=== PATIENT | male | born 1960 | race American Indian/Alaskan Native ===

== ENCOUNTER 2019-03-26 03:04 | Emergency (ER) | payer SELFPAY ==
--- NOTE | 2019-03-26 04:32 | Emergency Department Report ---
Minor Respiratory - HPI Chief Complaint: Upper Respiratory Infection Stated Complaint: COUGH SOB SNEEZING BODY ACHES Time Seen by Provider: 03/26/19 04:27 Duration: 5 Days Minor Respiratory: Yes Able to Tolerate Fluids, Yes Cough, Yes Shortness of Breath (improved), No Rhinorrhea, No Sore Throat, No Ear Pain, No Chest Pain, No Fever Other History: 58-year-old -Polish male presents to the emergency room complaining of nonproductive cough with sneezing bodyaches and shortness of breath with exertion. Patient states that the shortness of breath has improved. 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 Patient reports that he took NyQuil on Monday. Patient reports a past medical history of hypertension but has not been on his medications for over 4 months. Patient does have a primary care provider. Patient denies any fever. ED Review of Systems ROS: Stated complaint: COUGH SOB SNEEZING BODY ACHES Other details as noted in HPI Comment: All other systems reviewed and negative ENT: other (sneezing, body aches) Respiratory: cough ED Past Medical Hx - Past Medical History Previous Medical History?: No - Surgical History Past Surgical History?: Yes Additional Surgical History: cheek bone - Social History Smoking Status: Current Every Day Smoker Substance Use Type: Alcohol - Medications Home Medications: Home Medications Medication Instructions Recorded Confirmed Last Taken Type Ibuprofen [Motrin 800 MG tab] 800 mg PO Q8HR PRN #28 tablet 03/26/19 Unknown Rx Loratadine [Claritin] 10 mg PO DAILY 14 Days #14 tablet 03/26/19 Unknown Rx guaiFENesin [Robitussin] 200 mg PO Q6HR PRN 7 Days #28 03/26/19 Unknown Rx tablet Minor Respiratory Exam - Exam General: Vital signs noted. No distress. Alert and acting appropriately. HEENT: Yes Moist Mucous Membranes, No Pharyngeal Erythema, No Pharyngeal Exudates, No Rhinorrhea, No Conjuctival Injection, No Frontal Tenderness, No Maxillary Tenderness Ear: Neither TM Bulge, Neither TM Erythema, Neither EAC Pain, Neither EAC Discharge Neck: Yes Supple, No Adenopathy Lungs: Yes Good Air Exchange, No Wheezes, No Ronchi, No Stridor, No Cough, No Labored Respirations, No Retractions, No Use of Accessory Muscles, No Other Abnormal Lung Sounds Heart: Yes Regular, No Murmur Abdomen: Yes Normal Bowel Sounds, No Tenderness, No Peritoneal Signs Skin: No Rash, No Edema Neurologic: Alert and oriented, no deficits. Musculoskeletal: Unremarkable. ED Course Vital Signs 03/26/19 03:13 Temperature 97.6 F Pulse Rate 91 H Respiratory 18 Rate Blood Pressure 178/107 O2 Sat by Pulse 97 Oximetry ED Medical Decision Making - Medical Decision Making 58-year-old -Polish male presents to the emergency room complaining of nonproductive cough with sneezing bodyaches and shortness of breath with exertion. Patient states that the shortness of breath has improved. 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 Patient reports that he took NyQuil on Monday. Patient reports a past medical history of hypertension but has not been on his medications for over 4 months. Patient does have a primary care provider. Patient denies any fever. Patient will be discharged home with Claritin 10 mg daily and Robitussin every 4-6 hours as needed for cough. Critical care attestation.: If time is entered above; I have spent that time in minutes in the direct care of this critically ill patient, excluding procedure time. ED Disposition Clinical Impression: Allergic rhinitis Disposition: DC-01 TO HOME OR SELFCARE Is pt being admited?: No Does the pt Need Aspirin: No Condition: Stable Instructions: Allergic Rhinitis (ED) Prescriptions: Loratadine [Claritin] 10 mg PO DAILY 14 Days #14 tablet Ibuprofen [Motrin 800 MG tab] 800 mg PO Q8HR PRN #28 tablet PRN Reason: Pain , Severe (7-10) guaiFENesin [Robitussin] 200 mg PO Q6HR PRN 7 Days #28 tablet PRN Reason: Cough Referrals: ANKIT SANCHEZ MD [Staff Physician] - 3-5 Days Forms: Work/School Release Form(ED)
[2019-03-26 07:14] VITALS: BP 146/97
== END 2019-03-26 05:39 | disposition home or self-care (01) ==
LOC: ED 03:04
DX: J30.9 Allergic rhinitis, unspecified (principal); F17.200 Nicotine dependence, unspecified, uncomplicated; Z79.899 Other long term (current) drug therapy

== ENCOUNTER 2019-06-15 19:00 | Emergency (ER) | payer BC ==
[2019-06-15 19:30] VITALS: BP 129/83
[2019-06-15] MEDS ORDERED: ACETAMINOPHEN 325 MG TAB PO ONE (19:36)
--- NOTE | 2019-06-15 19:36 | Event Note ---
ED Screening Note Date of service: 06/15/19 Time: 19:33 ED Screening Note: Pt complains of fever, bodyaches, cough, and headaches x 4 days +SOB This initial assessment/diagnostic orders/clinical plan/treatment(s) is/are subject to change based on patients health status, clinical progression and re- assessment by fellow clinical providers in the ED. Further treatment and workup at subsequent clinical providers discretion. Patient/guardian urged not to elope from the ED as their condition may be serious if not clinically assessed and managed. Initial orders include: CXR
[2019-06-15] MEDS ORDERED: ACETAMINOPHEN 325 MG TAB ONE (19:37)
--- NOTE | 2019-06-15 20:20 | XRay Report ---
CHEST 2 VIEWS INDICATION / CLINICAL INFORMATION: fever, cough, shortness of breath. COMPARISON: None available. FINDINGS: SUPPORT DEVICES: None. HEART / MEDIASTINUM: No significant abnormality. LUNGS / PLEURA: Ill-defined patchy bibasilar airspace opacities are present, greater on the left. No pleural fluid. No pneumothorax. ADDITIONAL FINDINGS: No significant additional findings. IMPRESSION: Findings are concerning for pneumonia in the lower lobes and possibly the middle lobe. Signer Name: Norberto Valdez MD Signed: 06/15/2019 8:16 PM Workstation Name: [id number]
[2019-06-15] MEDS ORDERED: levoFLOXacin 750 MG TAB PO ONE (23:16)
[2019-06-15] MEDS ORDERED: SODIUM CHLORIDE 0.9% 1000 ML 1,000 ML IV ONE (23:35)
[2019-06-15] MEDS ORDERED: IPRATROPIUM/ALBUTEROL SULFATE 3 ML AMPUL.NEB IH ONE (23:35)
[2019-06-15] MEDS ORDERED: methylPREDNISolone Sod Succinate 125 MG/2 ML INJ IV ONE (23:35)
[2019-06-15 23:53] LABS: Basophils % (Auto) 0.1 % (0.0-1.8); Hematocrit 41.2 % (35.5-45.6); Hemoglobin 13.9 gm/dl (11.8-15.2); Lymphocytes # (Auto) 0.7 K/mm3 (1.2-5.4); Lymphocytes % (Auto) 9.2 % (13.4-35.0); Mean Corpuscular HGB Conc 34 % (32-34); Mean Corpuscular Volume 93 fl (84-94); Monocytes # (Auto) 0.6 K/mm3 (0.0-0.8); Monocytes % (Auto) 8.2 % (0.0-7.3); Platelet Count 188 K/mm3 (140-440); Red Blood Count 4.43 M/mm3 (3.65-5.03)
[2019-06-16 00:20] LABS: Alanine Aminotransferase 21 units/L (7-56); Albumin 3.8 g/dL (3.9-5); BUN/Creatinine Ratio 14; Blood Urea Nitrogen 15 mg/dL (9-20); Calcium 9.5 mg/dL (8.4-10.2); Hemolysis Index 4
--- NOTE | 2019-06-16 01:05 | Emergency Department Report ---
- General Chief Complaint: Upper Respiratory Infection Stated Complaint: BAD COUGH/SOB Source: patient Mode of arrival: Ambulatory Limitations: No Limitations - History of Present Illness Initial Comments: Patient is a 58-year-old -[place] male with a history of hypertension and presents to the ED with content of acute onset persistent intermittent fever and chills, diffuse body aches and pains, nasal and sinus congestion, sore throat, frontal sinus pressure and headache, dry cough for the last 5 days. Patient states that in the last 2 days his symptoms have worsened. Patient states that he has been taking [id number] medication with no relief. Patient denies dizziness, chest pain, shortness of breath, abdominal pain, nausea, vomiting, diarrhea, palpitations, change in vision or syncope on dysuria or testicle pain. MD Complaint: fever, cough, sore throat, rhinorrhea, nasal congestion, sinus pain -: Sudden, days(s) (5) Severity: moderate Severity scale (0 -10): 6 Quality: sharp, aching Consistency: constant Improves With: nothing Worsens With: nothing Context: sick contacts Associated Symptoms: denies other symptoms, fever, chills, myalgias, headache, rhinorrhea, nasal congestion, sore throat, cough. denies: diaphoresis, stiff neck, chest pain, shortness of breath, abdominal pain, nausea, vomiting, diarrhea, dysuria, rash, confusion, right sweats, weight loss, epistaxis, hoarseness, ear pain, other Treatments Prior to Arrival: none - Related Data Previous Rx's Medication Instructions Recorded Last Taken Type Ibuprofen [Motrin 800 MG tab] 800 mg PO Q8HR PRN #28 tablet 03/26/19 Unknown Rx Loratadine (Nf) [Claritin] 10 mg PO DAILY 14 Days #14 tablet 03/26/19 Unknown Rx guaiFENesin [Robitussin] 200 mg PO Q6HR PRN 7 Days #28 03/26/19 Unknown Rx tablet ALBUTEROL Inhaler (OR & NICU) 1 - 2 puff IH Q6H PRN #1 inh 06/16/19 Unknown Rx [ProAir HFA Inhaler] Benzonatate [Tessalon Perles] 100 mg PO Q8HR #30 capsule 06/16/19 Unknown Rx Cetirizine HCl [Zyrtec 10mg tab] 10 mg PO DAILY #30 tablet 06/16/19 Unknown Rx Ibuprofen [Motrin] 800 mg PO Q8HR PRN #24 tablet 06/16/19 Unknown Rx levoFLOXacin [Levaquin] 750 mg PO QDAY #7 tablet 06/16/19 Unknown Rx methylPREDNISolone [Medrol 4MG 4 mg PO DAILY #21 tab.ds.pk 06/16/19 Unknown Rx DOSEPAK (21 tabs)] Allergies Allergy/AdvReac Type Severity Reaction Status Date / Time No Known Allergies Allergy Verified 03/26/19 03:10 ED Review of Systems ROS: Stated complaint: BAD COUGH/SOB Other details as noted in HPI Constitutional: chills, fever, malaise Eyes: denies: eye pain, eye discharge, vision change ENT: congestion. denies: ear pain, throat pain Respiratory: cough. denies: shortness of breath, SOB with exertion, SOB at rest, wheezing Cardiovascular: denies: chest pain, palpitations Endocrine: no symptoms reported Gastrointestinal: denies: abdominal pain, nausea, vomiting, diarrhea Genitourinary: denies: urgency, dysuria Musculoskeletal: arthralgia, myalgia. denies: back pain, joint swelling Skin: denies: rash, lesions Neurological: headache. denies: weakness, paresthesias Psychiatric: denies: anxiety, depression Hematological/Lymphatic: denies: easy bleeding, easy bruising ED Past Medical Hx - Past Medical History Previous Medical History?: Yes Hx Hypertension: Yes - Surgical History Past Surgical History?: Yes Additional Surgical History: cheek bone, right hand surgery - Social History Smoking Status: Current Every Day Smoker Substance Use Type: None - Medications Home Medications: Home Medications Medication Instructions Recorded Confirmed Last Taken Type Ibuprofen [Motrin 800 MG tab] 800 mg PO Q8HR PRN #28 tablet 03/26/19 Unknown Rx Loratadine (Nf) [Claritin] 10 mg PO DAILY 14 Days #14 tablet 03/26/19 Unknown Rx guaiFENesin [Robitussin] 200 mg PO Q6HR PRN 7 Days #28 03/26/19 Unknown Rx tablet ALBUTEROL Inhaler (OR & NICU) 1 - 2 puff IH Q6H PRN #1 inh 06/16/19 Unknown Rx [ProAir HFA Inhaler] Benzonatate [Tessalon Perles] 100 mg PO Q8HR #30 capsule 06/16/19 Unknown Rx Cetirizine HCl [Zyrtec 10mg tab] 10 mg PO DAILY #30 tablet 06/16/19 Unknown Rx Ibuprofen [Motrin] 800 mg PO Q8HR PRN #24 tablet 06/16/19 Unknown Rx levoFLOXacin [Levaquin] 750 mg PO QDAY #7 tablet 06/16/19 Unknown Rx methylPREDNISolone [Medrol 4MG 4 mg PO DAILY #21 tab.ds.pk 06/16/19 Unknown Rx DOSEPAK (21 tabs)] ED Physical Exam - General Limitations: No Limitations General appearance: alert, in no apparent distress - Head Head exam: Present: atraumatic, normocephalic, normal inspection - Eye Eye exam: Present: normal appearance, PERRL, EOMI Pupils: Present: normal accommodation - ENT ENT exam: Present: normal orophraynx, mucous membranes moist, TM's normal bilaterally, normal external ear exam, other (grossly congested nasal passages; probable frontal sinus tenderness) - Neck Neck exam: Present: normal inspection, full ROM, lymphadenopathy. Absent: tenderness - Respiratory Respiratory exam: Present: normal lung sounds bilaterally, wheezes (mildly diffuse coarse wheezes). Absent: respiratory distress, rales, rhonchi, chest wall tenderness, accessory muscle use, decreased breath sounds, prolonged expiratory - Cardiovascular Cardiovascular Exam: Present: normal rhythm, tachycardia, normal heart sounds. Absent: systolic murmur, diastolic murmur, rubs, gallop - GI/Abdominal GI/Abdominal exam: Present: soft, normal bowel sounds. Absent: distended, tenderness, rebound, hyperactive bowel sounds, hypoactive bowel sounds, organomegaly, mass - Extremities Exam Extremities exam: Present: normal inspection, full ROM, normal capillary refill - Back Exam Back exam: Present: normal inspection, full ROM. Absent: tenderness, CVA tenderness (R), CVA tenderness (L), muscle spasm - Neurological Exam Neurological exam: Present: alert, oriented X3, CN II-XII intact, normal gait, reflexes normal - Psychiatric Psychiatric exam: Present: normal affect, normal mood - Skin Skin exam: Present: warm, dry, intact, normal color. Absent: rash ED Course Vital Signs 06/15/19 06/15/19 06/15/19 19:20 19:37 20:37 Temperature 102.1 F H Pulse Rate 109 H Pulse Rate [ Bilateral] Respiratory 18 20 16 Rate Respiratory Rate [Bilateral ] Blood Pressure 129/83 O2 Sat by Pulse 93 Oximetry 06/16/19 00:03 Temperature Pulse Rate Pulse Rate [ 88 Bilateral] Respiratory Rate Respiratory 22 Rate [Bilateral ] Blood Pressure O2 Sat by Pulse Oximetry ED Medical Decision Making - Lab Data Result diagrams: 06/15/19 23:30 06/15/19 23:30 - Radiology Data Radiology results: report reviewed, image reviewed Findings [facility] [address] [place] [address] XRay Report Signed Patient: JULIANA LI MR#: [id number] : 1960 Acct:[id number] Age/Sex: 58 / M ADM Date: 06/15/19 Loc: ED Attending Dr: Ordering Physician: FAREED MCLEAN Date of Service: 06/15/19 Procedure(s): XR chest routine 2V Accession Number(s): [id number] cc: FAREED MCLEAN Fluoro Time In Minutes: CHEST 2 VIEWS INDICATION / CLINICAL INFORMATION: fever, cough, shortness of breath. COMPARISON: None available. FINDINGS: SUPPORT DEVICES: None. HEART / MEDIASTINUM: No significant abnormality. LUNGS / PLEURA: Ill-defined patchy bibasilar airspace opacities are present, greater on the left. No pleural fluid. No pneumothorax. ADDITIONAL FINDINGS: No significant additional findings. IMPRESSION: Findings are concerning for pneumonia in the lower lobes and possibly the middle lobe. Signer Name: Norberto Valdez MD Signed: 06/15/2019 8:16 PM Workstation Name: [id number] Transcribed By: DMB Dictated By: Norberto Valdez MD Electronically Authenticated By: Norberto Valdez MD Signed Date/Time: 06/15/192015 DD/ 13 TD/TT: - Medical Decision Making This is a 58-year-old male who presented to the ED with acute onset persistent nasal and sinus congestion, intermittent fever and chills, diffuse body aches and pains, frontal sinus pressure and persistent dry cough with intermittent shortness of breath and pleuritic chest wall pain for 5 days. In the ED, patient is alert and oriented 3 and is not in distress but tachycardic and febrile in triage. Lab test results were reviewed and are nonactionable. Chest x-ray shows findings concerning for pneumonia in the lower lobes and possibly the middle lobe. Patient received DuoNeb treatment in the ED, Solu-Medrol, pain medications and initial oral antibiotics Levaquin 750 mg by mouth 1. On reevaluation, patient's wheezing and pains as well as tachycardia and fever have resolved. Patient was discharged home on antibiotics and pain medications and also cough medications and advised to follow-up with his primary care physician in 7-10 days for reevaluation or return to the ED immediately if symptoms get worse. - Differential Diagnosis pneumonia; sinusitis; strep pharyngitis; flu; URI Critical care attestation.: If time is entered above; I have spent that time in minutes in the direct care of this critically ill patient, excluding procedure time. ED Disposition Clinical Impression: Acute upper respiratory infection, Fever with chills Community acquired pneumonia Qualifiers: Laterality: right Lung location: lower lobe of lung Qualified Code(s): J18.9 - Pneumonia, unspecified organism Disposition: TO HOME OR SELFCARE Is pt being admited?: No Does the pt Need Aspirin: No Condition: Stable Instructions: Bacterial Pneumonia (ED), Community-acquired Pneumonia (ED), Upper Respiratory Infection (ED), Fever in Adults (ED) Additional Instructions: Take medications with food, drink plenty of fluids and follow-up with your primary care physician in 7-10 days for reevaluation. Return to the ED immediately if symptoms get worse. Prescriptions: levoFLOXacin [Levaquin] 750 mg PO QDAY #7 tablet methylPREDNISolone [Medrol 4MG DOSEPAK (21 tabs)] 4 mg PO DAILY #21 tab.ds.pk Ibuprofen [Motrin] 800 mg PO Q8HR PRN #24 tablet PRN Reason: Fever >101 ALBUTEROL Inhaler (OR & NICU) [ProAir HFA Inhaler] 1 - 2 puff IH Q6H PRN #1 inh PRN Reason: Dyspnea Benzonatate [Tessalon Perles] 100 mg PO Q8HR #30 capsule Cetirizine HCl [Zyrtec 10mg tab] 10 mg PO DAILY #30 tablet Referrals: JAQUAN AUGUSTINE MD [Primary Care Provider] - 3-5 Days Time of Disposition: 01:10 Print Language: ALBANIAN
== END 2019-06-16 01:35 | disposition home or self-care (01) ==
LOC: ED 19:00
DX: J18.9 Pneumonia, unspecified organism (principal); J06.9 Acute upper respiratory infection, unspecified; I10 Essential (primary) hypertension; F17.200 Nicotine dependence, unspecified, uncomplicated; Z98.890 Other specified postprocedural states; Z79.899 Other long term (current) drug therapy
CPT/HCPCS: 36415; 71046; 80053; 82140; 85025; 87040; 94644; 96361; 96374; 99284; J2930; J7030